=== PATIENT | male | born 1950 | race Two or more races ===

== ENCOUNTER 2016-11-19 16:05 | Emergency (ER) | payer BC ==
[~2016-11-19] VITALS: Ht 172.7 cm; Wt 86.0 kg
[2016-11-19] MEDS ORDERED: GUAI1TBM14 PO (16:14)
[2016-11-19 16:15] VITALS: BP 128/78
== END 2016-11-19 18:00 | disposition home or self-care (01) ==
LOC: ER 16:08
DX: J06.9 Acute upper respiratory infection, unspecified (principal); Z88.0 Allergy status to penicillin; E78.00 Pure hypercholesterolemia, unspecified; Z88.6 Allergy status to analgesic agent
CPT/HCPCS: 99283

== ENCOUNTER 2017-06-01 04:06 | Emergency (ER) | payer BC ==
[~2017-06-01] VITALS: Ht 172.7 cm; Wt 82.0 kg
[~2017-06-01 04:06] MED LIST: GUAI1TBM14 PO
[2017-06-01 04:11] VITALS: BP 145/82
== END 2017-06-01 06:21 | disposition home or self-care (01) ==
LOC: ER 04:06
DX: S00.452A Superficial foreign body of left ear, initial encounter (principal); E78.00 Pure hypercholesterolemia, unspecified; Z88.0 Allergy status to penicillin; Z88.8 Allergy status to other drugs, medicaments and biological substances; X58.XXXA Exposure to other specified factors, initial encounter; Y93.89 Activity, other specified; Y92.89 Other specified places as the place of occurrence of the external cause; Y99.8 Other external cause status
CPT/HCPCS: 99283

== ENCOUNTER 2022-07-13 18:48 | Inpatient (IN) | payer BC, OTHER ==
[~2022-07-13] VITALS: Ht 172.7 cm; Wt 86.6 kg
[2022-07-13 19:42] LABS: EOSINOPHILS % 0.8 % (0.0-5.0); HEMATOCRIT. 44.8 % (42.0-52.0); HEMOGLOBIN. 15.1 g/dL (14.0-18.0); LYMPHOCYTES % 39.3 % (20.0-50.0); MEAN CORPUSCULAR HEMOGLOBIN 29.3 pg (28.0-32.0); MEAN CORPUSCULAR VOLUME 86.7 fL (80.0-94.0); MEAN PLATELET VOLUME 6.9 fl (7.4-10.4); NEUTROPHILS % 52.9 % (40.0-76.0); PLATELET 332 x1000/uL (130-400); RED BLOOD CELL COUNT 5.16 mill/uL (4.7-6.1); RED CELL DISTRIBUTION WIDTH 13.6 % (11.6-14.6)
[2022-07-13] MEDS ORDERED: ADENOSINE 3 MG/ML 2ML VIAL IV ONE ×2 (19:45)
[2022-07-13] MEDS ORDERED: SODIUM CHLORIDE 0.9% 1,000 ML IV ONE (19:45)
[2022-07-13 20:00] LABS: CHLORIDE 111 mEq/L (98-107)
[2022-07-13] MEDS ORDERED: ASPIRIN 325MG EC TABLET PO ONE (21:45)
[2022-07-13] MEDS ORDERED: MAGNESIUM/ALUMINUM HYDROXIDE/SIMETHICONE 30ML UDC PO PRN (23:15)
[2022-07-13] MEDS ORDERED: CLONIDINE 0.1MG TABLET PO PRN (23:15)
[2022-07-13] MEDS ORDERED: NITROGLYCERIN 0.4MG TABLET SL SL PRN (23:15)
[2022-07-13] MEDS ORDERED: DOCUSATE SODIUM 100MG CAPSULE PO PRN (23:15)
[2022-07-13] MEDS ORDERED: IPRATROPIUM/ALBUTEROL 0.5-3(2.5)MG/3ML NEB NEB PRN (23:15)
[2022-07-13] MEDS ORDERED: NA PHOS,M-B/NA PHOS,DI-BA ENEMA 118ML PR PRN (23:15)
[2022-07-13] MEDS ORDERED: ZOLPIDEM TARTRATE 5MG TABLET PO PRN (23:15)
[2022-07-13] MEDS ORDERED: KETOROLAC 15MG/ML VIAL IV PRN (23:15)
[2022-07-13] MEDS ORDERED: ONDANSETRON HCL 4MG/2ML INJ IV PRN (23:15)
[2022-07-13] MEDS ORDERED: ACETAMINOPHEN 325MG TABLET PO PRN ×2 (23:15)
[2022-07-13] MEDS ORDERED: GUAIFENESIN 200MG/10ML SUGAR FREE UDC PO PRN (23:15)
[2022-07-14] MEDS ORDERED: ENOXAPARIN 100MG/ML SYR SUBCUT NR
[2022-07-14 00:22] LABS: ETHANOL BLOOD < 10 mg/dL; HDL CHOLESTEROL 39 mg/dL (40-59); LDL CHOLESTEROL 85 mg/dL (5-100); T4 FREE 0.93 ng/dL (0.76-1.46); TOTAL IRON BINDING CAPACITY 268 ug/dL (250-450)
[2022-07-14] MEDS: DILTIAZEM HCL 60MG TABLET PO SCH ×5 (00:26→23:56)
[2022-07-14 00:41] LABS: VITAMIN B12 SERUM 805 pg/mL (211-911)
[2022-07-14 05:54] LABS: PHOSPHORUS 3.1 mg/dL (2.5-4.9)
[2022-07-14 05:57] LABS: CREATINE KINASE MB FRACTION 3.2 ng/mL (0.5-3.6)
[2022-07-14 06:00] VITALS: BP 130/80
[2022-07-14 06:11] LABS: BASOPHILS % 0.8 % (0.0-2.0); EOSINOPHILS % 1.1 % (0.0-5.0); HEMATOCRIT. 44.6 % (42.0-52.0); HEMOGLOBIN. 15.1 g/dL (14.0-18.0); MEAN CORPUSCULAR HEMOGLOBIN 29.3 pg (28.0-32.0); MEAN CORPUSCULAR VOLUME 86.9 fL (80.0-94.0); MEAN PLATELET VOLUME 6.9 fl (7.4-10.4); MONOCYTES % 7.6 % (2.0-8.0); NEUTROPHILS % 48.5 % (40.0-76.0); PLATELET 313 x1000/uL (130-400); RED BLOOD CELL COUNT 5.13 mill/uL (4.7-6.1); RED CELL DISTRIBUTION WIDTH 13.7 % (11.6-14.6)
[2022-07-14 06:52] LABS: CHLORIDE 112 mEq/L (98-107)
[2022-07-14] MEDS ORDERED: ATOR20TA PO (06:59)
[2022-07-14 08:00] VITALS: BP 103/71
[2022-07-14] MEDS: FAMOTIDINE 20MG TABLET PO SCH ×2 (09:19→20:37)
[2022-07-14] MEDS: ASPIRIN 325MG EC TABLET PO SCH (09:19)
[2022-07-14 11:35] LABS: *AMPHETAMINES SCREEN URINE NEGATIVE (NEGATIVE); *BARBITURATES SCREEN URINE NEGATIVE (NEGATIVE); *BENZODIAZEPINES SCREEN URINE NEGATIVE (NEGATIVE); *COCAINE SCREEN URINE NEGATIVE (NEGATIVE); CANNABINOID URINE SCREEN NEGATIVE (NEGATIVE); METHADONE URINE SCREEN NEGATIVE (NEGATIVE); OPIATES URINE SCREEN NEGATIVE (NEGATIVE); PHENCYCLIDINE URINE SCREEN NEGATIVE (NEGATIVE)
[2022-07-14 12:00] VITALS: BP 101/73
[2022-07-14] MEDS: ENOXAPARIN 100MG/ML SYR SUBCUT SCH ×2 (12:44→23:55)
[2022-07-14 16:00] VITALS: BP 101/58
[2022-07-14 18:00] LABS: CREATINE KINASE MB FRACTION 2.2 ng/mL (0.5-3.6)
[2022-07-14 20:00] VITALS: BP 101/68
[2022-07-14] MEDS ORDERED: ATORVASTATIN CALCIUM 10MG TABLET PO SCH (21:00)
[2022-07-15] VITALS: BP 124/71
[2022-07-15 04:00] VITALS: BP 115/71
[2022-07-15] MEDS: DILTIAZEM HCL 60MG TABLET PO SCH ×2 (05:08→12:00)
[2022-07-15 05:59] LABS: HEMATOCRIT 41.3 % (42.0-52.0); HEMOGLOBIN 13.9 g/dL (14.0-18.0); MEAN CORPUSCULAR HEMOGLOBIN 29.3 pg (28.0-32.0); MEAN CORPUSCULAR VOLUME 86.9 fL (80.0-94.0); PLATELET 299 x1000/uL (130-400); RED BLOOD CELL COUNT 4.75 mill/uL (4.7-6.1); RED CELL DISTRIBUTION WIDTH 13.4 % (11.6-14.6)
[2022-07-15 07:36] LABS: CHLORIDE 112 mEq/L (98-107)
[2022-07-15 07:45] LABS: PHOSPHORUS 3.1 mg/dL (2.5-4.9)
[2022-07-15 08:00] VITALS: BP 111/73
[2022-07-15] MEDS: ASPIRIN 325MG EC TABLET PO SCH (09:28)
[2022-07-15] MEDS: FAMOTIDINE 20MG TABLET PO SCH (09:28)
[2022-07-15 12:30] VITALS: BP 158/75
[2022-07-15] MEDS: ENOXAPARIN 100MG/ML SYR SUBCUT SCH (13:02)
[2022-07-15] MEDS ORDERED: APIX5TAB PO (15:22)
[2022-07-15] MEDS ORDERED: DILT60TA35 PO (15:22)
[2022-07-15 15:30] VITALS: BP 158/75
[2022-07-15] MEDS ORDERED: ATOR20TA MT (15:47)
[2022-07-15] MEDS ORDERED: FAMO-135 MT (15:47)
[2022-07-15] MEDS ORDERED: APIX5TAB MT (15:47)
[2022-07-15] MEDS ORDERED: ASPI-1406 MT (15:47)
[2022-07-15] MEDS ORDERED: DILT240C91 MT (15:47)
== END 2022-07-15 16:40 | disposition home or self-care (01) | DRG 206 ==
LOC: ER 18:48 → MICUSO 22:20 → 8WST 07-14 05:55
PROVIDERS: ADMIT Internal Medicine; ATTEND Internal Medicine
DX: M94.0 Chondrocostal junction syndrome [Tietze] (principal); I47.1 Supraventricular tachycardia; I48.0 Paroxysmal atrial fibrillation; R73.9 Hyperglycemia, unspecified; E78.00 Pure hypercholesterolemia, unspecified; Z79.82 Long term (current) use of aspirin; Z79.899 Other long term (current) drug therapy; Z82.49 Family history of ischemic heart disease and other diseases of the circulatory system; Z88.0 Allergy status to penicillin; Z88.8 Allergy status to other drugs, medicaments and biological substances
CPT/HCPCS: 36415; 71045; 80048; 80053; 80061; 80305; 80320; 82550; 82553; 82607; 82746; 83036; 83540; 83550; 83735; 83880; 84100; 84439; 84443; 84484; 85025; 85027; 85379; 93005; 93306; 93970; 99285; J0153; J1650; J7030; G0480